=== PATIENT | female | born 1985 | race Caucasian/White ===

== ENCOUNTER 2017-01-31 09:00 | Emergency (ER) | payer OTHER ==
--- NOTE | 2017-01-31 09:32 | ED PDOC ---
HPI: General Adult Time Seen by Provider: 01/31/17 09:09 Chief Complaint (Provider): lower abdominal pain History Per: Patient History/Exam Limitations: no limitations Onset/Duration Of Symptoms: Intermittent Episodes Additional Complaint(s): 31yo female A6, 16 weeks , comes to the ED complaining of lower abdominal pain for 1 week, worsening. No fever, chills, vomit, diarrhea, urinary symptoms, vaginal bleeding, vaginal discharge. Describes pain as cramping. 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 Patient states she had an US completed earlier in the and was told it was normal. D[employer] SPECIALIST: Dr Monk Past Medical History Reviewed: Historical Data, Nursing Documentation, Vital Signs Vital Signs: Last Vital Signs Temp 98 F 01/31/17 10:02 Pulse 80 01/31/17 10:02 Resp 19 01/31/17 10:02 BP 141/54 L 01/31/17 10:02 Pulse Ox 98 01/31/17 10:02 - Medical History Other PMH: fibroids - Surgical History Other surgeries: D&C - Family History Family History: States: Unknown Family Hx - Living Arrangements Living Arrangements: With Family - Home Medications Home Medications: Ambulatory Orders Medication Instructions Recorded Aspirin [Sanders Aspirin] 81 mg PO DAILY 01/31/17 Vit No.126/Iron/FA 1 tab PO DAILY 01/31/17 [Classic Tablet] - Allergies Allergies/Adverse Reactions: Allergies Allergy/AdvReac Type Severity Reaction Status Date / Time unknown Allergy ANGIOEDEMA Uncoded 02/02/16 15:52 Review of Systems ROS Statement: Except As Marked, All Systems Reviewed And Found Negative Constitutional: Negative for: Fever, Chills Gastrointestinal: Positive for: Nausea, Abdominal Pain. Negative for: Vomiting , Diarrhea Genitourinary Female: Negative for: Dysuria, Frequency, Incontinence, Hematuria , Vaginal Discharge, Vaginal Bleeding Physical Exam - Reviewed Nursing Documentation Reviewed: Yes Vital Signs Reviewed: Yes - Physical Exam Appears: Positive for: Well, Non-toxic, No Acute Distress Head Exam: Positive for: ATRAUMATIC, NORMAL INSPECTION, NORMOCEPHALIC Skin: Positive for: Warm, Dry Eye Exam: Positive for: EOMI, PERRL Cardiovascular/Chest: Positive for: Regular Rate, Rhythm Respiratory: Positive for: Normal Breath Sounds. Negative for: Rales, Rhonchi, Wheezing Gastrointestinal/Abdominal: Positive for: Soft, Tenderness (mild tenderness in suprapubic and left lower quadrant), Other (gravid) Extremity: Positive for: Normal ROM Neurologic/Psych: Positive for: Alert, Oriented (x3) - Laboratory Results Result Diagrams: 01/31/17 09:45 01/31/17 09:45 Medical Decision Making Medical Decision Makin Recommend tylenol use at home. Recommend bedrest. Fibroids noted on previous US report. impression: differential includes threatened , ovarian cyst, ovarian torsion, physiological pain associated with , uterine ligament syndrome, UTI. Plan: -US -labs -tylenol -reassesss 1450 US OB Impression: eighteen week 3 day gestation age fetus. Positive heart motion. anatomic survey not performed. Low lying placenta. recomend follow-up for full anatomic survey. Disposition - Clinical Impression Clinical Impression: Abdominal pain affecting , Fibroids - Patient ED Disposition Is Patient to be Admitted: No Doctor Will See Patient In The: Office Counseled Patient/Family Regarding: Studies Performed, Diagnosis, Need For Followup - Disposition Referrals: Christoph Monk MD [Staff Provider] - Disposition: Routine/Home Disposition Time: 15:00 Condition: GOOD Additional Instructions: Follow up with your PCP in 2-3 days. Return for worsening. Take tylenol for pain. Instructions: Abdominal Pain in (ED) Additional Comments - Additional Comments Additional Comments: Scribe Attestation Documented by Marvin Huggins, acting as a scribe for Jorge Paz MD. Provider Scribe Attestation All medical record entries made by the Scribe were at my direction and personally dictated by me. I have reviewed the chart and agree that the record accurately reflects my personal performance of the history, physical exam, medical decision making, and the department course for this patient. I have also personally directed, reviewed, and agree with the discharge instructions and disposition.
[2017-01-31 10:02] LABS: ALKALINE PHOSPHATASE 54 U/L (38-126); ALT/SGPT 40 U/L (9-52); AST/SGOT 30 U/L (14-36); BILIRUBIN,TOTAL 0.2 mg/dl (0.2-1.3); BLOOD UREA NITROGEN 9 mg/dl (7-17); CALCIUM 8.9 mg/dL (8.4-10.2); CARBON DIOXIDE 22 mmol/L (22-30); CHLORIDE 105 mmol/L (98-107); GFR AFRICAN-AMERICAN > 60; GLUCOSE,RANDOM 82 mg/dL (65-105); POTASSIUM 3.8 MMOL/L (3.6-5.0); SODIUM 136 mmol/l (132-148); TOTAL PROTEIN 6.8 G/DL (6.3-8.2)
[2017-01-31 10:03] VITALS: RESP 19; TEMP 98; O2SAT 98
[2017-01-31 10:06] LABS: BASO % 0.1 % (0.0-2.0); EOS # 0.1 K/uL (0.0-0.7); EOS % 0.7 % (0.0-4.0); HEMATOCRIT 32.3 % (34.0-47.0); LYMPH # 1.9 K/uL (1.0-4.3); LYMPH % 12.2 % (20.0-40.0); MEAN CORPUSCULAR HEMOGLOBIN 28.7 pg (27.0-31.0); MEAN CORPUSCULAR HGB CONC 32.7 g/dL (33.0-37.0); MEAN PLATELET VOLUME 9.9 fl (7.2-11.7); MONO # 0.8 K/uL (0.0-0.8); MONO % 5.2 % (0.0-10.0); NEUT # 12.4 K/uL (1.8-7.0); NEUT % 81.8 % (50.0-75.0); RED CELL DISTRIBUTION WIDTH 13.7 % (11.5-14.5); WHITE BLOOD COUNT 15.1 K/uL (4.8-10.8)
--- NOTE | 2017-01-31 13:01 | US ---
PROCEDURE: HISTORY: lower abdominal pain COMPARISON: TECHNIQUE: FINDINGS: Single live intrauterine fetus with a posterior placenta and low-lying placenta. Variable presentation. biometric measurements corresponds to 18 weeks and 3 days gestational age. anatomic survey was not performed. Amniotic fluid is within normal limits. Scattered fibroids are noted in the uterus. IMPRESSION: Eighteen week 3 day gestational age fetus. Positive heart motion. anatomic survey not performed. Low lying placenta. Recommend follow-up for full anatomic survey.
[2017-01-31 15:52] VITALS: BP 122/65; PULSE 89
== END 2017-01-31 16:15 | disposition home or self-care (01) ==
LOC: H.ER 09:00
DX: O20.0 Threatened abortion (principal); D25.9 Leiomyoma of uterus, unspecified; Z3A.16 16 weeks gestation of pregnancy

== ENCOUNTER 2018-02-18 09:59 | Emergency (ER) | payer OTHER ==
[2018-02-18 10:13] VITALS: O2SAT 100
[2018-02-18 10:14] VITALS: BMI 25.7
[2018-02-18] MEDS ORDERED: Sodium Chloride 0.9% 1,000 ML IV STA (10:18)
--- NOTE | 2018-02-18 10:22 | ED PDOC ---
HPI:Nausea, Vomiting, Diarrhea Time Seen by Provider: 02/18/18 10:11 History Per: Patient Onset/Duration Of Symptoms: Days (4) Current Symptoms Are (Timing): Still Present Severity: Moderate Pain Scale Rating Of: 4 Quality Of Discomfort: Cramping Associated Symptoms: Nausea, Vomiting, Diarrhea Exacerbating Factors: None Alleviating Factors: None Additional Complaint(s): Nausea vomiting and diarrhea x 4 days assoc with abd cramping. No fever or bloody stools Past Medical History Vital Signs: Last Vital Signs Temp 98.2 F 02/18/18 10:13 Pulse 73 02/18/18 10:13 Resp BP 134/85 02/18/18 10:13 Pulse Ox 100 02/18/18 10:13 - Medical History PMH: No Chronic Diseases - Family History Family History: States: Unknown Family Hx - Home Medications Home Medications: Ambulatory Orders Medication Instructions Recorded Aspirin [Mills Aspirin] 81 mg PO DAILY 01/31/17 Vit No.126/Iron/Folic 1 tab PO DAILY 01/31/17 [Classic Tablet] Doxylamine/Pyridoxine HCl (B6) 1 each PO DAILY #20 tablet. 02/18/18 [Raquel Panchal 10-10 mg Tablet] - Allergies Allergies/Adverse Reactions: Allergies Allergy/AdvReac Type Severity Reaction Status Date / Time No Known Allergies Allergy Verified 02/18/18 10:23 Review of Systems ROS Statement: Except As Marked, All Systems Reviewed And Found Negative Gastrointestinal: Positive for: Nausea, Vomiting, Abdominal Pain, Diarrhea Physical Exam - Reviewed Nursing Documentation Reviewed: Yes Vital Signs Reviewed: Yes - Physical Exam Appears: Positive for: Non-toxic, No Acute Distress Head Exam: Positive for: ATRAUMATIC, NORMAL INSPECTION, NORMOCEPHALIC Skin: Positive for: Normal Color, Warm, DRY Eye Exam: Positive for: EOMI, Normal appearance, PERRL ENT: Positive for: Normal ENT Inspection Neck: Positive for: Normal, Painless ROM Cardiovascular/Chest: Positive for: Regular Rate, Rhythm Respiratory: Positive for: CNT, Normal Breath Sounds Gastrointestinal/Abdominal: Positive for: Normal Exam, Soft. Negative for: Tenderness Back: Positive for: Normal Inspection. Negative for: L CVA Tenderness, R CVA Tenderness Extremity: Positive for: Normal ROM Neurologic/Psych: Positive for: Alert, Oriented - Laboratory Results Result Diagrams: 02/18/18 10:30 02/18/18 10:30 - ECG O2 Sat by Pulse Oximetry: 100 (RA) Pulse Ox Interpretation: Normal Medical Decision Making Medical Decision Making: Time: 1029 Plan: -- CMP -- ED Urine -- ED Urine Dipstick -- CBC with differentials -- Sodium Chloride IV 250 mls/hr -- OB Transvaginal Time: 1113 Plan: -- Beta HCG Quantitative Time: 1338 Transvaginal US Results FINDINGS: UTERUS: Single Live intrauterine gestation. CRL measures 6 mm equal to 6 weeks 3 days gestational age. Gestational sac measures 21 mm equal 6 weeks 5 days gestational age. age (Ultrasound estimated): 6 weeks 4 days Date of delivery (Ultrasound estimated) : 10/10/2018 Heart rate: 142 bpm. Jess-gestational hemorrhage: None. 4 mm yolk sac visualized. Uterus measures cm. No mass CERVIX: Cervical fibroid noted, 5.9 x 4.2 x 6.0 cm. RIGHT OVARY: Measures 3.0 x 1.2 x 2.8 cm. No mass. Normal flow. LEFT OVARY: Measures 2.9 x 2.2 x 2.8 cm. No mass. Normal flow. FREE FLUID: None. OTHER FINDINGS: None. IMPRESSION: Single live intrauterine gestation of approximately 6 weeks 4 days. No subchorionic hemorrhage. heart rate 142 beats per minute. Uterine fibroid and cervical fibroid as noted Scribe Attestation: Documented by Kina Javier, acting as a scribe for Dr. Francisco Bledsoe. Provider Scribe Attestation: All medical record entries made by the Scribe were at my direction and personally dictated by me. I have reviewed the chart and agree that the record accurately reflects my personal performance of the history, physical exam, medical decision making, and the department course for this patient. I have also personally directed, reviewed, and agree with the discharge instructions and disposition. Disposition - Clinical Impression Clinical Impression: Hyperemesis gravidarum - Patient ED Disposition Is Patient to be Admitted: No Counseled Patient/Family Regarding: Studies Performed, Diagnosis, Need For Followup, Rx Given - Disposition Referrals: [facility] [place] [Outside] Disposition: Routine/Home Disposition Time: 14:56 Condition: FAIR Prescriptions: Doxylamine/Pyridoxine HCl (B6) [Raquel Panchal 10-10 mg Tablet] 1 each PO DAILY # 20 tablet. Instructions: Hyperemesis Gravidarum
[2018-02-18 10:41] LABS: BASO # 0.1 K/uL (0.0-0.2); BASO % 0.4 % (0.0-2.0); EOS % 0.2 % (0.0-4.0); HEMOGLOBIN 13.3 g/dL (12.0-16.0); LYMPH # 2.5 K/uL (1.0-4.3); LYMPH % 18.1 % (20.0-40.0); MEAN CORPUSCULAR HEMOGLOBIN 26.4 pg (27.0-31.0); MEAN CORPUSCULAR HGB CONC 32.2 g/dL (33.0-37.0); MEAN PLATELET VOLUME 10.4 fl (7.2-11.7); MONO # 0.6 K/uL (0.0-0.8); MONO % 4.4 % (0.0-10.0); NEUT # 10.8 K/uL (1.8-7.0); NEUT % 76.9 % (50.0-75.0); RBC 5.03 Mil/uL (3.80-5.20); RED CELL DISTRIBUTION WIDTH 15.1 % (11.5-14.5)
[2018-02-18 10:49] LABS: ALB/GLOB RATIO 1.3 (1.0-2.1); ALBUMIN 4.3 g/dL (3.5-5.0); ALT/SGPT 25 U/L (9-52); AST/SGOT 15 U/L (14-36); BLOOD UREA NITROGEN 11 mg/dl (7-17); CALCIUM 9.7 mg/dL (8.4-10.2); GFR AFRICAN-AMERICAN > 60; GFR NON-AFRICAN AMERICAN > 60
--- NOTE | 2018-02-18 13:13 | US ---
PROCEDURE: OB Pelvic Ultrasound HISTORY: r/o ectopic COMPARISON: None available. FINDINGS: UTERUS: Single Live intrauterine gestation. CRL measures 6 mm equal to 6 weeks 3 days gestational age. Gestational sac measures 21 mm equal 6 weeks 5 days gestational age. age (Ultrasound estimated): 6 weeks 4 days Date of delivery (Ultrasound estimated) : 10/10/2018 Heart rate: 142 bpm. Jess-gestational hemorrhage: None. 4 mm yolk sac visualized. Uterus measures cm. No mass CERVIX: Cervical fibroid noted, 5.9 x 4.2 x 6.0 cm. RIGHT OVARY: Measures 3.0 x 1.2 x 2.8 cm. No mass. Normal flow. LEFT OVARY: Measures 2.9 x 2.2 x 2.8 cm. No mass. Normal flow. FREE FLUID: None. OTHER FINDINGS: None. IMPRESSION: Single live intrauterine gestation of approximately 6 weeks 4 days. No subchorionic hemorrhage. heart rate 142 beats per minute. Uterine fibroid and cervical fibroid as noted.
[2018-02-18 14:41] VITALS: BP 121/59; PULSE 67; RESP 20; TEMP 98.4
== END 2018-02-18 15:16 | disposition home or self-care (01) ==
LOC: H.ER 09:59
DX: O21.1 Hyperemesis gravidarum with metabolic disturbance (principal); Z79.82 Long term (current) use of aspirin; Z3A.01 Less than 8 weeks gestation of pregnancy; O34.11 Maternal care for benign tumor of corpus uteri, first trimester; D26.0 Other benign neoplasm of cervix uteri
CPT/HCPCS: 76817; 80053; 81025; 84702; 85025; 96374; 99284; J2405; J7040